=== PATIENT | male | born 1990 ===

== ENCOUNTER 2022-11-28 10:39 | Emergency (ER) | payer OTHER, BC | END 2022-11-28 12:33 | disposition home or self-care (01) | LOC: VM.ED 10:39 | DX: S40.012A Contusion of left shoulder, initial encounter (principal); S20.212A Contusion of left front wall of thorax, initial encounter; M54.50 Low back pain, unspecified; V89.2XXA Person injured in unspecified motor-vehicle accident, traffic, initial encounter; Y92.410 Unspecified street and highway as the place of occurrence of the external cause | CPT/HCPCS: 71101-LT; 72100; 73030-LT; 99283 ==